=== PATIENT | female | born 1940 | race Hispanic/Latino ===

== ENCOUNTER → 2024-08-04 | Outpatient (CLI) | payer MEDICARE | END | disposition home or self-care (01) | LOC: RAD 13:48 | PROVIDERS: ATTEND Nurse Practitioner Family | DX: S92.355A Nondisplaced fracture of fifth metatarsal bone, left foot, initial encounter for closed fracture (principal); M77.32 Calcaneal spur, left foot; M25.775 Osteophyte, left foot; M79.672 Pain in left foot; X58.XXXA Exposure to other specified factors, initial encounter; Y93.89 Activity, other specified; Y92.89 Other specified places as the place of occurrence of the external cause; Y99.8 Other external cause status | CPT/HCPCS: 73630-LT ==